=== PATIENT | male | born 1990 | race Caucasian/White ===

== ENCOUNTER 2017-03-11 05:59 | Emergency (ER) | payer BC ==
[2017-03-11 06:10] VITALS: BP 143/68; BMI 32.4
--- NOTE | 2017-03-11 07:02 | DR.GENAD ---
HPI - PCP Primary Care Physician: NFD - Complaint/Symptoms Chief Complaint Doctors Comments: patient admits to changing shifts on job and his eating habits have change. Denies frequent bowel movements. No BM in one week. Chief Complaint:: SEVERE STOMACH PAIN; NO BM X 1 WEEK; ABDOMEN IS DISTENDED Self Treatment fo Chief Complaint: LAXATIVES - Source History Provided: Patient - Mode of Arrival Mode of Arrival: Ambulatory - Timing Onset of Chief Complaint: 03/06/17 PMH - PMH Past Medical History: No Past Surgical History: No - Family History History of Family Medical Conditions: No - Social History Alcohol Use: None Do you use any recreational Drugs:: No Lives With: Spouse Lives Where: Home - infectious screening In the last 2 months have you had wt loss of >10#?: NO Have you had fever, night sweats or hemotysis?: No Have you traveled outside the country in the last 6 months?: No Isolation: Standard ROS - Review of Systems Eyes: No Symptoms Reported ENTM: No Symptoms Reported Respiratoy: No Symptoms Reported Cardiovascular: No Symptoms Reported Gastrointestinal/Abdominal: No Symptoms Reported Genitourinary: No Symptoms Reported Neurological: No Symptoms Reported Musculoskeletal: No Symptoms Reported Integumentary: No Symptoms Reported Hematologic/Lymphatic: No Symptoms Reported Endocrine: No Symptoms Reported Psychiatric: No Symptoms Reported All Other Systems: Reviewed and Negative PE - Vital Signs Vitals: Temperature 98.6 F Pulse Rate 92 Respiratory Rate 20 Blood Pressure 143/68 O2 Sat by Pulse Oximetry 98 - General General Appearance: Alert, In No Apparent Distress - Head Head Exam: Normal Inspection, Atraumatic - Eyes Eye exam: Normal Appearance, PERRL, EOMI - ENT ENT Exam: Normal Exam External Ear Exam: Normal External Inspection TM/Canal Exam: Bilateral Normal Nose Exam: Normal Nose Exam Mouth Exam: Normal Inspection Throat Exam: Normal Inspection - Neck Neck Exam: Normal Inspection - Chest Chest Inspection: Normal Inspection - Respiratory Respiratory Exam: Normal Lung Sounds Bilat Respiratory Exam: Bilateral Clear to Auscultation - Cardiovascular Cardiovascular Exam: Regular Rate - Abdominal Exam Abdominal Exam: Normal Bowel Sounds, Distention. negative: Organomegaly Abdominal Tenderness: negative: RUQ, RLQ, LUQ, LLQ, Epigastrium, Suprapubic, Diffuse, Mild, Moderate, Severe, Other - Extremities Extremities Exam: Normal Inspection, Full ROM - Back Back Exam: Normal Inspection - Neurologic Neurological Exam: Alert, Oriented X3, CN II-XII Intact - Psychiatric Psychiatric Exam: Normal Affect, Normal Mood - Skin Skin Exam: Warm, Dry, Intact ROR - XRAY XRAY Interpreted by: Self (Fecal impaction RLQ and transition LUQ) - Diagnosis Discharge Problem: Constipation Qualifiers: Constipation type: slow transit constipation Qualified Code(s): K59.01 - Slow transit constipation - Discharge Plan Condition: Stable - Follow ups/Referrals Follow ups/Referrals: NFD,None [Primary Care Provider] - 3 days - Instructions
--- NOTE | 2017-03-11 07:14 | RAD ---
HISTORY: Abdominal pain, constipation Study: Two views of the abdomen Comparison: None Findings: Evaluation of the abdomen demonstrates a nonspecific bowel gas pattern. A few loops of air-filled bow el are seen within the left nila abdomen. These findings are nonspecific but may reflect enteritis or perhaps localized ileus. A moderate amount of stool is seen within the ascending and transverse colo n. If symptoms persist recommend continued follow-up further evaluation. IMPRESSION: Overall nonspecific bowel gas pattern as noted above. Reported By:
[2017-03-11] MEDS ORDERED: CITROMA ONE (07:18)
[2017-03-11] MEDS ORDERED: CITROMA PO ONE (07:22)
== END 2017-03-11 07:23 | disposition home or self-care (01) ==
LOC: ER 05:59
DX: K59.01 Slow transit constipation (principal); R14.3 Flatulence
CPT/HCPCS: 74018; 99282